=== PATIENT | male | born 1985 | race Caucasian/White ===

== ENCOUNTER 2016-12-10 17:04 | Emergency (ER) | payer OTHER ==
--- NOTE | 2016-12-10 18:24 | ED Physician Documentation ---
General Adult - HISTORIAN Historian: patient - HPI Stated Complaint: Swelling to top of Lt. foot, possible trauma 3 weeks ago Chief Complaint: General Adult Onset: days ago Timing: still present Severity: moderate Further Comments: yes (Pt is a 31 yo male with pain in his L foot. Pain is worse after pt has been standing all day at his job. Pt does not recall an acute injury.) - ROS CONST: no problems EYES/ENT: none CVS/RESP: none GI/: none MS/SKIN/LYMPH: other (L foot pain) - PAST HX Past History: none Other History: none Allergies/Adverse Reactions: Allergies Allergy/AdvReac Type Severity Reaction Status Date / Time No Known Allergies Allergy Verified 12/10/16 17:51 Home Medications: Ambulatory Orders Medication Instructions Recorded NK [NK] 12/10/16 - SOCIAL HX Smoking History: cigarettes Alcohol Use: none Drug Use: none - FAMILY HX Family History: No - VITAL SIGNS Vital Signs: Vital Signs Temp Pulse Resp BP Pulse Ox 97.9 F 105 H 16 137/95 97 12/10/16 17:05 12/10/16 17:05 12/10/16 17:05 12/10/16 17:05 12/10/16 17:05 - REVIEWED ASSESSMENTS Nursing Assessment Reviewed: Yes Vitals Reviewed: Yes Progress - Progress Progress: 2 ml lidocaine 1% with 4 mg dexamethasone injected into dorsum of L foot between 3rd and 4thmetatarsal heads. pain relieved instructions for Gabriel neuroma given General Adult Physical Exam - PHYSICAL EXAM GENERAL APPEARANCE: mild distress NECK: normal inspection, supple RESPIRATORY: no resp distress, chest non-tender, breath sounds normal CVS: reg rate & rhythm, heart sounds normal BACK: normal inspection SKIN: warm/dry, normal color EXTREMITIES: other (tenderness L foot between metacarpals of digits 3 & 4 c/w Gabriel neuroma.) NEURO: oriented X3, motor nml, sensation nml Discharge Clincal Impression: Gabriel neuroma Qualifiers: Laterality: unspecified laterality Qualified Code(s): G57.60 - Lesion of plantar nerve, unspecified lower limb Referrals: Primary Doctor,No [Primary Care Provider] - Condition: Good Disposition: 01 HOME, SELF-CARE Decision to Admit: NO Decision Time: 18:45
[2016-12-10] MEDS ORDERED: Lidocaine 1% 5ml(IM or SUTURE)(PAIN CLINIC) ONE (18:29)
[2016-12-10] MEDS ORDERED: DEXAMETHASONE SOD PHOS 4 MG/ML VIAL ONE (18:30)
[2016-12-10] MEDS: DEXAMETHASONE SOD PHOS 4 MG/ML VIAL IJ STA (18:30)
[2016-12-10] MEDS: Lidocaine 1% 5ml(IM or SUTURE)(PAIN CLINIC) IJ ONE (18:30)
[2016-12-10 20:02] VITALS: BP 116/98
== END 2016-12-10 18:45 | disposition home or self-care (01) ==
LOC: ED 17:04
DX: G57.60 Lesion of plantar nerve, unspecified lower limb (principal)
CPT/HCPCS: J1100 ×2; 96372; 99283